=== PATIENT | female | born 1965 | race Caucasian/White ===

== ENCOUNTER 2021-09-26 18:57 | Emergency (ER) | payer OTHER ==
[2021-09-26 19:16] VITALS: TEMP 97.9; BMI 25.7
[2021-09-26] MEDS ORDERED: SODIUM CHLORIDE 0.9% 500 ML INFUS.BAG IV ONE (21:58)
[2021-09-26] MEDS ORDERED: KETOROLAC TROMETHAMINE 30 MG/1 ML VIAL IVPUSH ONE (21:58)
[2021-09-26] MEDS ORDERED: ONDANSETRON 4 MG/2 ML VIAL IVPUSH ONE (21:59)
[2021-09-26] MEDS ORDERED: ONDANSETRON 4 MG/2 ML VIAL ONE (22:37)
[2021-09-26] MEDS ORDERED: KETOROLAC TROMETHAMINE 30 MG/1 ML VIAL ONE (22:37)
[2021-09-26 22:51] LABS: BASO % 0.3 % (0-2.0); EOS % 0.9 % (0-4.5); HEMATOCRIT 39.3 % (32.4-45.2); HEMOGLOBIN 13.1 GM/dL (10.7-15.3); LYMPH % 31.1 % (8-40); MCH 30.4 pg (25.7-33.7); MCHC 33.5 g/dl (32.0-36.0); MEAN CELL VOLUME 90.9 fl (80-96); MEAN PLT VOLUME 7.8 fl (7.5-11.1); MONO % 8.6 % (3.8-10.2); NEUT % 59.1 % (42.8-82.8); PLATELET COUNT 258 10^3/uL (134-434); RBC 4.32 M/mm3 (3.60-5.2); RDW 13.6 % (11.6-15.6); WHITE BLOOD COUNT 8.2 K/mm3 (4.0-10.0)
[2021-09-26 22:54] LABS: EPI CELLS 10 /uL (0-25.1); HYALINE CASTS 1 /uL (0-3.1); PH,URINE 5.5 (5.0-8.0); URINE APPEARANCE CLEAR; URINE BACTERIA 265 /uL (0-1359); URINE BILIRUBIN NEGATIVE (NEGATIVE); URINE COLOR YELLOW; URINE GLUCOSE (UA) NEGATIVE (NEGATIVE); URINE KETONE 1+ (NEGATIVE); URINE LEUK ESTERASE NEGATIVE (NEGATIVE); URINE NITRITE NEGATIVE (NEGATIVE); URINE PROTEIN NEGATIVE (NEGATIVE); URINE RBC 88 /uL (0-23.9); URINE UROBILINOGEN 0.2 mg/dL (0.2-1.0); URINE WBC 20 /uL (0-25.8)
[2021-09-26 23:09] LABS: CHLORIDE 105 mmol/L (98-107); SODIUM 131 mmol/L (136-145)
[2021-09-26 23:11] LABS: BLOOD UREA NITROGEN 13.4 mg/dL (7-18); CALCIUM 8.5 mg/dL (8.5-10.1); CO2 25 mmol/L (21-32); GLUCOSE,RANDOM 86 mg/dL (74-106)
[2021-09-26 23:12] LABS: ALBUMIN 3.4 g/dl (3.4-5.0)
[2021-09-26 23:14] LABS: CREATININE 0.8 mg/dL (0.55-1.3)
[2021-09-26 23:17] LABS: ALK PHOS 68 U/L (45-117)
[2021-09-26 23:23] LABS: ANION GAP 1 MMOL/L (8-16); SGOT/AST 162 U/L (15-37)
[2021-09-27 01:16] LABS: ALBUMIN 3.3 g/dl (3.4-5.0); BLOOD UREA NITROGEN 12.1 mg/dL (7-18)
[2021-09-27 01:19] LABS: CREATININE 0.6 mg/dL (0.55-1.3)
[2021-09-27 01:21] LABS: BILIRUBIN,TOTAL 0.2 mg/dL (0.2-1)
[2021-09-27 01:45] LABS: TOT PROT 6.6 g/dl (6.4-8.2)
[2021-09-27 01:52] VITALS: BP 100/61; PULSE 79
== END 2021-09-27 01:55 | disposition home or self-care (01) ==
LOC: JER 18:57 → JERFT 18:57 → JER 09-27 01:55
PROC: 3E033GC Introduction of Other Therapeutic Substance into Peripheral Vein, Percutaneous Approach (ICD-10-PCS; principal; 2021-09-26)
DX: R10.84 Generalized abdominal pain (principal)
CPT/HCPCS: 36415; 74177-TC; 76705-TC; 80053; 81003; 85025; 87086; 99285-25

== ENCOUNTER 2022-08-13 13:28 | Emergency (ER) | payer OTHER ==
[2022-08-13 13:42] VITALS: BP 114/65; PULSE 73; RESP 18; TEMP 98.7; BMI 25.7
[2022-08-13] MEDS ORDERED: ACETAMINOPHEN 500 MG TABLET (FP) PO ONE (14:20)
[2022-08-13] MEDS ORDERED: KETOROLAC TROMETHAMINE 30 MG/1 ML VIAL IM ONE (14:20)
[2022-08-13] MEDS ORDERED: CYCLOBENZAPRINE HCL 10 MG TABLET (FP) PO ONE (14:20)
[2022-08-13] MEDS ORDERED: KETOROLAC TROMETHAMINE 30 MG/1 ML VIAL ONE (14:32)
[2022-08-13] MEDS ORDERED: ACETAMINOPHEN 500 MG TABLET (FP) ONE (14:32)
[2022-08-13] MEDS ORDERED: CYCLOBENZAPRINE HCL 10 MG TABLET (FP) ONE (14:32)
== END 2022-08-13 16:25 | disposition home or self-care (01) ==
LOC: JERFT 13:28
PROC: 3E0233Z Introduction of Anti-inflammatory into Muscle, Percutaneous Approach (ICD-10-PCS; principal; 2022-08-13)
DX: M25.521 Pain in right elbow (principal); W10.9XXA Fall (on) (from) unspecified stairs and steps, initial encounter
CPT/HCPCS: 73070-TC-RT-FY; 99284-25